=== PATIENT | female | born 1945 ===

== ENCOUNTER → 2016-10-30 | Outpatient (CLI) | payer MEDICARE, MEDICAID ==
[~2016-10-30] VITALS: Ht 160 cm; Wt 41.5 kg
[~2016-10-30] MED LIST: ALBU8HFA IH; AMPI500C68 PO; CARI350 PO; ESCI20TA PO; GLYC10.7 PO; HYD25 PO; HYDR-308 PO; PRED10 PO; SIMV-260 PO; TRAZ-144 PO
[2016-10-30 13:16] VITALS: BP 113/55
== END | disposition home or self-care (01) ==
LOC: SRCNTR 13:11
PROVIDERS: ATTEND Internal Medicine
DX: J44.9 Chronic obstructive pulmonary disease, unspecified (principal); C50.919 Malignant neoplasm of unspecified site of unspecified female breast; F17.210 Nicotine dependence, cigarettes, uncomplicated; Z90.11 Acquired absence of right breast and nipple
CPT/HCPCS: G0463

== ENCOUNTER → 2017-01-15 | Outpatient (CLI) | payer MEDICARE, MEDICAID ==
[~2017-01-15] VITALS: Ht 160 cm; Wt 41.5 kg
[2017-01-15 13:20] VITALS: BP 110/60
== END | disposition home or self-care (01) ==
LOC: SRCNTR 12:59
PROVIDERS: ATTEND Internal Medicine
DX: J44.9 Chronic obstructive pulmonary disease, unspecified (principal); C50.911 Malignant neoplasm of unspecified site of right female breast; F17.200 Nicotine dependence, unspecified, uncomplicated
CPT/HCPCS: G0463